=== PATIENT | female | born 1935 | race Hispanic/Latino ===

== ENCOUNTER 2017-09-20 09:55 | Emergency (ER) | payer OTHER, SELFPAY ==
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
== END 2017-09-20 11:50 | disposition home or self-care (01) ==
LOC: ERS 09:55
DX: S29.011A Strain of muscle and tendon of front wall of thorax, initial encounter (principal); S80.12XA Contusion of left lower leg, initial encounter; I10 Essential (primary) hypertension; V43.92XA Unspecified car occupant injured in collision with other type car in traffic accident, initial encounter
CPT/HCPCS: 71046

== ENCOUNTER 2019-02-09 13:32 | Outpatient (CLI) | payer OTHER | END 2019-02-09 13:33 | disposition home or self-care (01) | LOC: ULT 13:32 | PROVIDERS: ATTEND Family Medicine | DX: I42.9 Cardiomyopathy, unspecified (principal); R05 Cough; I08.3 Combined rheumatic disorders of mitral, aortic and tricuspid valves | CPT/HCPCS: 93306 ==

== ENCOUNTER 2020-01-07 17:47 | Emergency (ER) | payer OTHER ==
[~2020-01-07 17:47] MED LIST: Iopamidol-370 76% 500 ML 1 ML ONE
[2020-01-07 21:08] LABS: #Basophils 0.1 thou/uL (0.0-0.2); #Eosinphils 0.1 thou/uL (0.0-0.7); #Lymphocytes 2.5 thou/uL (1.20-3.40); #Monocytes 1.3 thou/uL (0.11-0.59); #Neutrophils 9.7 thou/uL (1.40-6.50); %Basophils 0.4 % (0.0-1.0); %Eosinophils 0.4 % (0.0-10.0); %Lymphocytes 18.5 % (21.0-51.0); %Monocytes 9.2 % (0.0-10.0); %Neutrophils 71.5 % (42.0-75.0); Hemoglobin 11.3 g/dL (12.0-16.0); Mean Corpuscular HGB CONC 32.5 g/dL (32.0-36.0); Mean Corpuscular Hemoglobin 28.1 pg (27.0-31.0); Mean Corpuscular Volume 86.3 fL (78.0-98.0); Mean Platelet Volume 6.8 fL (7.4-10.4); Platelet Count 390 thou/uL (130-400); RBC Distribution Width 13.9 % (11.5-14.5); Red Blood Cell (RBC) Count 4.03 mill/uL (4.20-5.40); White Blood Cell (WBC) Count 13.6 thou/uL (4.8-10.8)
[2020-01-07] MEDS ORDERED: Morphine 4 MG/ML VIAL ONE (21:17)
[2020-01-07 21:50] LABS: Bilirubin Negative (Negative); Blood, Urine Negative (Negative); Clarity Clear (Clear); Glucose, Urine (Dipstick) Normal (Negative); Ketone, Urine 10 mg/dL (Negative); Leukocyte Negative Leu/uL (Negative); Nitrite Negative (Negative); Protein, Urine (Dipstick) 10 mg/dL (Neg-Trace); Specific Gravity, Urine 1.014 (1.002-1.036); pH, Urine 6.5 (5.0-9.0)
[2020-01-07 21:51] LABS: ALT (SGPT) 11 U/L (8-55); AST (SGOT) 17 U/L (5-34); Albumin 3.2 g/dL (3.4-4.8); Alkaline Phosphatase 80 U/L (40-110); Anion Gap 15 mmol/L (10-20); BUN (Urea Nitrogen) 12 mg/dL (9.8-20.1); Bilirubin, Total 0.5 mg/dL (0.2-1.2); Calc. Creatinine Clearance 0 mL/min (70-130); Calcium 8.9 mg/dL (7.8-10.44); Carbon Dioxide 24 mmol/L (23-31); Chloride 99 mmol/L (98-107); Estimated GFR-MDRD 82; Globulin 2.8 g/dL (2.4-3.5); Glucose 99 mg/dL (83-110); Lipase Less than 4 U/L (8-78); Potassium 3.4 mmol/L (3.5-5.1); Sodium 135 mmol/L (136-145)
--- NOTE | 2020-01-07 22:31 | CT ---
CT ABDOMEN AND PELVIS WITH IV CONTRAST: Date: 01/07/2020 INDICATION: Right abdominal pain. No comparison. FINDINGS: Lung bases clear. Liver shows mild intra and extrahepatic biliary duct dilatation. Patient appears to be post cholecyst ectomy. Spleen and pancreas unremarkable. Stomach and duodenum unremarkable. Adrenal glands unremarkable. Both kidneys show mildly prominent renal pelvises without evidence of hy dronephrosis. No evidence of urinary calculus. Urinary bladder is mildly distended. Small bowel loops normal caliber. There is abnormal mural thickening and dilatation of the mid right colon. There is surrounding inflam mation; however, neoplasm is the diagnosis of exclusion. There is scattered stool in the colon. There is diverticulosis of the sigmoid. Prominent stool in the rectum. Aorta shows atherosclerotic change, but normal caliber. No free fluid. IMPRESSION: 1. Abnormality involving the right colon. The mid right colon shows abnormal dilatation with mural t hickening and irregular wall. Neoplasm should be excluded. Recommend colonoscopy to further evaluate. 2. Other nonacute findings as noted above. POS: [facility]
== END 2020-01-07 23:49 | disposition home or self-care (01) ==
LOC: ERS 17:47
DX: K63.89 Other specified diseases of intestine (principal); I10 Essential (primary) hypertension; Z79.899 Other long term (current) drug therapy
CPT/HCPCS: 51701; 74177; 80053; 81003; 83690; 84484; 85025; 93005; 96361; 96374; J2270; Q9967

== ENCOUNTER 2020-01-21 18:32 | Inpatient (IN) | payer OTHER ==
[2020-01-21] MEDS ORDERED: Morphine 4 MG/ML VIAL ONE (20:09)
[2020-01-21 20:22] LABS: Bilirubin Negative (Negative); Blood, Urine Negative (Negative); Glucose, Urine (Dipstick) Negative (Negative); Ketone, Urine 40 mg/dL (Negative); Leukocyte Small (Negative); Nitrite Negative (Negative); Protein, Urine (Dipstick) Negative (Neg-Trace); pH, Urine 5.5 (5.0-9.0)
[2020-01-21 20:22] LABS: ALT (SGPT) 11 U/L (8-55); AST (SGOT) 19 U/L (5-34); Albumin 2.9 g/dL (3.4-4.8); Alkaline Phosphatase 122 U/L (40-110); Anion Gap 16 mmol/L (10-20); BUN (Urea Nitrogen) 9 mg/dL (9.8-20.1); Bilirubin, Total 0.5 mg/dL (0.2-1.2); Calc. Creatinine Clearance 0 mL/min (70-130); Calcium 8.1 mg/dL (7.8-10.44); Carbon Dioxide 24 mmol/L (23-31); Chloride 96 mmol/L (98-107); Estimated GFR-MDRD 88; Globulin 2.3 g/dL (2.4-3.5); Glucose 121 mg/dL (83-110); Protein, Total 5.2 g/dL (6.0-8.3); Sodium 131 mmol/L (136-145)
[2020-01-21 20:23] LABS: Clarity Hazy (Clear)
[2020-01-21 20:29] LABS: Bacteria/HPF 3+ HPF (None Seen); RBC/HPF None Seen HPF (0-3)
[2020-01-21 21:08] LABS: #Basophils 0.1 thou/uL (0.0-0.2); #Lymphocytes 1.1 thou/uL (1.20-3.40); #Monocytes 1.1 thou/uL (0.11-0.59); #Neutrophils 14.2 thou/uL (1.40-6.50); %Basophils 0.3 % (0.0-1.0); %Eosinophils 0.2 % (0.0-10.0); %Lymphocytes 6.9 % (21.0-51.0); %Monocytes 6.6 % (0.0-10.0); Hemoglobin 11.8 g/dL (12.0-16.0); Mean Corpuscular HGB CONC 31.9 g/dL (32.0-36.0); Mean Corpuscular Hemoglobin 27.9 pg (27.0-31.0); Mean Corpuscular Volume 87.4 fL (78.0-98.0); Mean Platelet Volume 6.6 fL (7.4-10.4); Platelet Count 392 thou/uL (130-400); Red Blood Cell (RBC) Count 4.22 mill/uL (4.20-5.40); White Blood Cell (WBC) Count 16.5 thou/uL (4.8-10.8)
--- NOTE | 2020-01-21 21:10 | RAD ---
Exam: Chest one view HISTORY:Trauma. Unwitnessed fall at home. Comparison: 09/20/2017 FINDINGS: Cardiac silhouette: Normal Aorta: Atherosclerosis Pulmonary vessels: Normal Costophrenic angles: Left-sided pleural effusion LUNGS: Hyperinflation. Parenchymal changes left lung base. Pneumothorax: None Osseous abnormalities: No acute osseous abnormalities IMPRESSION: 1. Pleural and parenchymal changes in the left lung base 2. Atherosclerosis.
--- NOTE | 2020-01-21 21:11 | RAD ---
Exam:Right wrist 3 views HISTORY: Fall. Pain. COMPARISON: None FINDINGS: Diffuse bone demineralization. Intercarpal joint spaces are preserved. Nondisplaced fracture of the base of the first metacarpal is suspected. Correlate for point tendernes s. Distal radius fracture with dorsal angulation. Ulnar styloid injury is also noted. There is associated soft tissue swelling and deformity. IMPRESSION: 1. Ulnar styloid fracture 2. Distal radius fracture with dorsal angulation. There is associated deformity and soft tissue swell ing. 3. Probable nondisplaced fracture of the base of the first metacarpal. Correlate for point tenderness .
--- NOTE | 2020-01-21 21:12 | RAD ---
Exam: One view pelvis HISTORY: Fall. Trauma. Pain FINDINGS: Limited evaluation of the sacrum due to overlying bowel gas Intact bony pelvis Intact obturator rings Symmetric hip joint spaces Contour of both femoral heads are maintained. No hip fracture IMPRESSION: No fracture.
--- NOTE | 2020-01-21 21:31 | CT ---
Exam: Head CT without contrast HISTORY: Status post fall. No loss of consciousness. COMPARISON: none FINDINGS: Hemorrhage: No intraparenchymal hemorrhage or extra-axial hematoma. Brain parenchyma: Cortical kauffman-white matter differentiation is preserved. No mass effect or midline shift. Basilar cisterns are patent.Minimal periventricular white matter hypodensities due to chronic small vessel ischemic change Ventricular system: Ventricles and sulci are patent and symmetric. Calvarium: Intact. Sinuses and mastoid air cells: Small air-fluid level in the right maxillary sinus is presumed to be d ue to sinus disease. Scalp/soft tissues: Small focus of air attenuation involving the right frontal scalp likely represent ing posttraumatic laceration. There is mild posttraumatic edema involving the right periorbital, presenting traumatic and premaxillary soft tissues. IMPRESSION: 1. No intracranial post traumatic sequelae 2. Post traumatic changes involving the right periorbital soft tissues, right facial soft tissues and right scalp. 3. Small air-fluid level of the right maxillary sinus which is presumed to be due to sinus disease. I n the appropriate clinical setting, posttraumatic change with a small focus of hemorrhage in the right maxillary sinus cannot be excluded. Clinical correlation and additional imaging if clinically w arranted.
--- NOTE | 2020-01-21 21:35 | CT ---
Exam: CT cervical spine without contrast HISTORY: Trauma. Pain. COMPARISON: None FINDINGS: No craniocervical dissociation. Appropriate alignment of the lateral masses of C1 and C2. Intact odon toid process There is grade 1 anterolisthesis of C2 upon C3, grade 1 retrolisthesis C4 upon C5, grade 1 anterolist hesis of C5 upon and grade 1 anterolisthesis of C7 upon T1. Facet arthropathy favors chronic changes rather than ligamentous injury. Soft tissue neck structures: No mass, lymphadenopathy or hematoma. No prevertebral soft tissue swelli ng. Upper mediastinum and lung apices: Unremarkable Central spinal canal: Moderate central canal stenosis at C4-C5 due to broad-based osteophyte ridge. T here are varying degrees of neural foraminal stenosis due to degenerative change. Technique limits evaluation Vertebral bodies: Cervical spine vertebral body height is maintained. No fracture. IMPRESSION: 1. No cervical spine fracture. 2. Spondylolisthesis likely due to facet arthropathy. Current study does not assess for ligamentous i njury. If there is concern for ligamentous injury, MRI can be performed.
[2020-01-21] MEDS ORDERED: Bupivacaine 0.5% 10 ML VIAL ONE (22:24)
--- NOTE | 2020-01-21 23:19 | RAD ---
Exam:Right wrist 3 views HISTORY: Distal radius fracture. Status post reduction COMPARISON: None FINDINGS: Overlying fiberglass is been placed. Limited evaluation for fine bony detail. Stable distal radius fracture with persistent dorsal angulation. Stable soft tissue swelling and defo rmity. Fracture involving the proximal aspect of the first metatarsal is also redemonstrated. Ulnar styloid fracture is also redemonstrated IMPRESSION: Post reduction findings as above. Results study discussed with Dr. Kearns 01/21/2020 at 11:16 PM code CR
[2020-01-21] MEDS ORDERED: Ondansetron ODT 4 MG TAB PO PRN (23:43)
[2020-01-21] MEDS ORDERED: Dextrose 5% in Water 1,000 ML IV PRN (23:43)
[2020-01-21] MEDS ORDERED: hydrALAZINE 20 MG/ML VIAL SLOW IVP PRN (23:43)
[2020-01-21] MEDS ORDERED: Morphine 4 MG/ML VIAL SLOW IVP PRN (23:43)
[2020-01-21] MEDS ORDERED: Dextrose 50% Abboject 50 ML SYRINGE SLOW IVP PRN (23:43)
[2020-01-21] MEDS ORDERED: traMADol HCl 50 MG TAB PO PRN (23:46)
--- NOTE | 2020-01-22 00:05 | PDOC.H&P ---
- History & Physical HISTORY OF PRESENT ILLNESS: Ms Vides is a 85-year-old female, who presented to the [facility] an episod of syncope and fall at home. Daughter reported that she saw her mother " pass out " and fell face down , hit her forehead, broke her glass . Daughter also stated that her mother has lost 20lb in a few weeks now, and her BP typical low , in [facility] primary Dr advise that she hold on to HTN medication Patient did not remember the event. After the fall, she felt pain from R wrist Upon arrival in the ED, patient alert and wake, GCS 15. Pain from R wrist, vital stable Tomorrow will be her first appointment with general surgoen discussing on her colon cancer treatment. REVIEW OF SYSTEMS: Noncontributory except per HPI. PAST MEDICAL HISTORY: hypertension, colon cancer await for treatment PAST SURGICAL HISTORY: Bilateral knee replacement SOCIAL HISTORY: denied smoking history . Drinks socially. Denies drug use. ALLERGIES: sulfa, penicillin CURRENT MEDICATIONS: unrecalled PHYSICAL EXAMINATION: GENERAL: Currently, the patient is lying in bed, alert and awake. GCS 15. severe obesity VITAL SIGNS: Blood pressure 120/80, heart rate 85, respiratory rate 19, O2 saturation 99 on room air HEENT: No deformity. No tender to palpation. some bruising around R eye NECK: Trachea midline. CHEST: no tender to palpation bilaterally. atraumatic LUNGS: clear bilaterally HEART regular rate and rhyme ABDOMEN: soft non distended bowel sound active PELVIS: Stable. EXTREMITIES: R wrsit is on splint. Neurovascular intact x4 NEUROLOGIC: GCS 15. LABORATORY DATA: Initial workup shows white count 16.5 hemoglobin 11.8, sodium 131, potassium 5, creatinine 0.64 UA: UTI X-ray of the R wrist: : distal radius fracture, ulna styloid fracture CT of Chest, abdomen, and pelvis , brain and cervical spine: no acute abnormality ASSESSMENT: 1. Status post ground level fall , syncope 2. R wrist fracture 3. UTI on admission 4. History of colon cancer PLAN: The patient will be admitted to [facility] [address] Jordan will take patient to the OR for R wrist fracture fixation tomorrow. Initiate antibiotic for UTI Initiate nonpharmacological DVT prophylaxis, gastritis prophylaxis.
[2020-01-22] MEDS ORDERED: Ciprofloxacin 500 MG TAB PO SCH (01:00)
[2020-01-22] MEDS: traMADol HCl 50 MG TAB PO SCH ×4 (03:18→17:00)
[2020-01-22] MEDS: Acetaminophen 325 MG TAB PO SCH ×4 (03:18→17:00)
[2020-01-22] MEDS: Morphine 2 MG/ML VIAL SLOW IVP PRN ×2 (03:35→09:20)
[2020-01-22] MEDS: Sodium Chloride 0.9% 1,000 ML IV SCH ×3 (03:36→16:51)
[2020-01-22 05:10] LABS: #Lymphocytes 1.5 thou/uL (1.20-3.40); #Monocytes 1.2 thou/uL (0.11-0.59); #Neutrophils 10.4 thou/uL (1.40-6.50); %Basophils 0.2 % (0.0-1.0); %Eosinophils 0.1 % (0.0-10.0); %Lymphocytes 11.8 % (21.0-51.0); %Monocytes 8.8 % (0.0-10.0); %Neutrophils 79.1 % (42.0-75.0); Hemoglobin 10.2 g/dL (12.0-16.0); Mean Corpuscular HGB CONC 30.9 g/dL (32.0-36.0); Mean Corpuscular Hemoglobin 26.6 pg (27.0-31.0); Mean Platelet Volume 6.8 fL (7.4-10.4); Platelet Count 377 thou/uL (130-400); RBC Distribution Width 13.9 % (11.5-14.5); Red Blood Cell (RBC) Count 3.82 mill/uL (4.20-5.40); White Blood Cell (WBC) Count 13.1 thou/uL (4.8-10.8)
[2020-01-22 05:26] LABS: Anion Gap 16 mmol/L (10-20); BUN (Urea Nitrogen) 8 mg/dL (9.8-20.1); Calc. Creatinine Clearance 50 mL/min (70-130); Calcium 8.1 mg/dL (7.8-10.44); Carbon Dioxide 23 mmol/L (23-31); Chloride 98 mmol/L (98-107); Estimated GFR-MDRD Greater than 90; Glucose 107 mg/dL (83-110); Potassium 3.8 mmol/L (3.5-5.1); Sodium 133 mmol/L (136-145)
[2020-01-22] MEDS ORDERED: CEFAZOLIN 2 GM in Premix Bag 1 BAG IVPB SCH (07:30)
--- NOTE | 2020-01-22 08:00 | ULT ---
BILATERAL CAROTID DUPLEX ULTRASOUND: HISTORY: Syncope, confusion TECHNIQUE: Grayscale, color-flow and spectral Doppler ultrasound imaging of the extracranial carotid artery syst ems was performed bilaterally. FINDINGS: There is minimal plaque formation on either side The peak systolic velocity in the right ICA measures 68 cm/s with an end-diastolic velocity of 17 cm/ s and a systolic ratio of 0.80. The peak systolic velocity in the left ICA measures 68 cm/s with an end-diastolic velocity of 15 cm/s and a systolic ratio of 0.79. Flow in both vertebral arteries remains antegrade. IMPRESSION: No evidence of hemodynamically significant stenosis in either ICA
[2020-01-22] MEDS: Famotidine 20 MG TAB PO SCH ×2 (09:20→21:27)
--- NOTE | 2020-01-22 09:20 | CON ---
DATE OF CONSULTATION: This is Kali Raymond PA-C dictating a report for Pierre Alicia MD. HISTORY OF PRESENT ILLNESS: We were asked by Trauma in the ER to see patient. Daughter was in the room, interpreting. Daughter states that mom got up, was holding onto a closet, closet moved, she fell, she hit her head on the right side and sustained a right broken wrist. Daughter states she did not really lose consciousness. Her eyes were open, but it sounds like she was quite stunned as her mom did not answer or do anything for a short period of time. In speaking with daughter, her mom was normal this morning. Her only complaint is a right-sided head pain and right wrist pain. Denies any numbness and tingling in the fingers, but they hurt to move. The patient also has some right lower abdominal edema, swelling, which daughter states is from her tumor growing and it is painful. PAST MEDICAL HISTORY: Hypertension, colon cancer, which patient does not want any treatments per family. PAST SURGICAL HISTORY: Bilateral knee. ALLERGIES: SULFA, PENICILLIN. CURRENT MEDICATIONS: Daughter will bring a list today, but not on any blood thinners. SOCIAL HISTORY: Lives with family. No nicotine, alcohol, or drug use whatsoever. FAMILY HISTORY: For this event, is noncontributory. REVIEW OF SYSTEMS: Wrist and right-sided head pain and some right abdominal pain. Otherwise, rest of review of systems negative. PHYSICAL EXAMINATION: VITAL SIGNS: Respirations 16. GENERAL: Well-nourished, well-developed very pleasant female. Speech clear. Affect pleasant. Answers questions appropriately. Oriented per daughter, who is interpreting. No acute distress. HEENT: Scalp/face, right-sided scalp, face bruising with some tenderness. Otherwise, face is symmetric. Smile is equal. Tongue midline. NECK: Supple. Trachea midline. ABDOMEN: Right lower quadrant, the patient does have some swelling and pain. EXTREMITIES: Upper extremities equal size, shape, symmetry. Normal bulk and tone with the exception of her right wrist and fingers, which are swollen. She is able to move the fingers well, but it does cause increased wrist pain. Fingers are a little bit swollen, but no sensory deficits. No pain in the hips with internal-external rotation of legs and moving legs well. PELVIS: Rocked, no pain with doing so. ASSESSMENT: 1. Fall. 2. Multiple health issues. 3. Right wrist fracture. PLAN: Again, I spoke with daughter, who explained to her mom we need to do a closed reduction and pinning. I explained that if this does not hold, we may need to open the wrist and do some plate and screws. We went over both procedures. She explained it to her mom and went over the risks and benefits of the surgery, which they understand and Trauma is following for medical management. The patient and daughter are amenable to go forth with surgery. Daughter is going to run home, get the power of claim attorney, get cleaned up and then come on back in and then at that point, I will introduce her to Dr. Alicia. We will get her consented. Antibiotics are ordered. She is first case down in the OR. Job ID: [id number]
[2020-01-22] MEDS: Gabapentin 100 MG CAP PO SCH ×2 (09:21→21:26)
[2020-01-22] MEDS: Polyethylene Glycol 3350 17 GM Packet PO SCH (09:21)
[2020-01-22] MEDS: Senokot S 8.6-50 MG TAB PO SCH ×2 (09:21→21:27)
[2020-01-22] MEDS ORDERED: Lidocaine 1% PF 5 ML VIAL ONE (10:29)
[2020-01-22] MEDS ORDERED: Ondansetron PF 4 MG/2 ML Vial ONE (10:29)
[2020-01-22] MEDS ORDERED: PROPOFOL 200 MG/20 ML VIAL ONE (10:29)
[2020-01-22] MEDS ORDERED: Dexamethasone 20 MG/5 ML VIAL ONE (10:29)
[2020-01-22] MEDS ORDERED: Fentanyl 100 MCG/2 ML VIAL ONE (12:11)
[2020-01-22 12:28] LABS: SARS-CoV-2 MS2 Positive; SARS-CoV-2 N Gene Negative; SARS-CoV-2 S Gene Negative; SARS-CoV-2 by NAA Not Detected (NotDetected); SARS-CoV-2 orf1ab Negative
[2020-01-22] MEDS ORDERED: Ondansetron HCl/PF 4 MG/2 ML Vial IVP PRN (14:10)
--- NOTE | 2020-01-22 14:44 | RAD ---
Radiograph right wrist 2 views: 01/22/2020 HISTORY: 85-year-old female with acute, traumatic, wrist fracture COMPARISON: Postreduction images of 01/21/2020 FINDINGS: Splint has been removed. Fluoroscopic spot images obtained with C-arm. Distal radial metaphyseal frac ture has been reduced, and fixated with 2 K wires. Ulnar styloid fracture remains displaced. IMPRESSION: Status post very recent closed reduction and pin fixation of acute, traumatic, displaced distal radia l metaphyseal fracture.
--- NOTE | 2020-01-22 17:24 | PRG ---
DATE OF SERVICE: 01/22/2020 SUBJECTIVE: Ms. Vides is an 85-year-old woman, Chinese-speaking only, who is post injury day #1 status post fall following a near-syncopal episode. She suffered a right wrist fracture. This morning, through a hotel services sales representative, she reports adequate pain control. The patient recalls feeling faint prior to the fall. She denies any chest pain, dyspnea, or any other fall episodes in the past. OBJECTIVE: VITAL SIGNS: This morning include blood pressure 132/63, pulse 92, respiratory rate is 14, temperature 98.7 degrees Fahrenheit, oxygen saturation 93% on room air. HEART: Reveals irregular rate and rhythm. LUNGS: Clear to auscultation bilaterally. Breathing, regular and nonlabored. ABDOMEN: Soft, nontender, and nondistended. EXTREMITIES: Reveals 2+ left radial and bilateral pedal pulses present. Right upper extremity is immobilized in a long splint. She has good capillary refill. NEUROLOGIC: Reveals no focal deficits present. LABORATORY FINDINGS: Today include a CBC with 13,100 white blood cells, hemoglobin and hematocrit are 10.2 and 32.9 respectively. Platelet count 377,000. Metabolic profile; sodium 133, potassium 3.8, chloride is 98, bicarb is 23, BUN is 8, creatinine 0.60, glucose 107. IMPRESSION: 1. Post injury day #1 status post ground level fall. 2. Closed right wrist fracture. 3. Near syncopal episode, likely secondary to orthostatic hypotension. PLAN: 1. Initiate physical and occupational therapy following surgery. 2. We will obtain a transthoracic echocardiography to evaluate cardiac chambers, function, and wall motion. 3. Note that the bilateral carotid ultrasound revealed no critical stenosis. 4. Above findings and plan discussed with the patient, who indicates understanding of information given. 5. I have answered her questions. Job ID: [id number]
[2020-01-22] MEDS ORDERED: Prevnar 13-Val Conj/PF 0.5 ML SYRINGE IM ONE (21:00)
--- NOTE | 2020-01-22 23:56 | OP ---
DATE OF PROCEDURE: 01/22/2020 PREOPERATIVE DIAGNOSES: 1. Right distal radius fracture (Colles fracture). 2. Right thumb metacarpal base fracture, nondisplaced. POSTOPERATIVE DIAGNOSES: 1. Right distal radius fracture (Colles fracture). 2. Right thumb metacarpal base fracture, nondisplaced. PROCEDURES PERFORMED: 1. Closed reduction and pinning of right distal radius fracture. 2. Closed treatment of right thumb metacarpal fracture. ANESTHESIA: General. COMPUTER VIDEO GAME DESIGNER: Kali Raymond PA-C TOURNIQUET TIME: Zero. ESTIMATED BLOOD LOSS: Zero. IMPLANTS: 0.062 K-wires x2. COMPLICATIONS: None. DRAINS: None. SPECIMEN: None. OUTCOME: Satisfactory. INDICATIONS FOR PROCEDURE: The patient is an 85-year-old lady, status post syncopal episode, sustaining a right distal radius fracture as well as nondisplaced right thumb metacarpal base fracture. After discussion with the patient and her daughter including risks and benefits, we decided to proceed with a closed reduction and percutaneous pin stabilization for the displaced right distal radius and proceed with nonsurgical management for the right thumb metacarpal fracture. Informed consent has been obtained. I believe all questions answered. DESCRIPTION OF PROCEDURE: The patient was brought to the operating room, and a time-out performed followed by induction of general anesthesia. Next, a sterile prep and drape were performed of the right upper extremity. A closed reduction maneuver was performed of the right wrist with evangelical of radial inclination, volar tilt, and radial length. Given this evangelical of alignment, it was opted to proceed with K-wire stabilization. A first K-wire was passed from the tip of the radial styloid obliquely across the fracture into the proximal radial metaphyseal cortex. A second pin was passed through the fourth extensor compartment obliquely across the fracture. This resulted in relatively good stabilization of the fracture with good alignment. The thumb metacarpal base was found to be completely nondisplaced and as such, not felt to be in need of surgical stabilization. The two K-wires were bent at right angles and dressed with Xeroform and gauze. A fiberglass splint was then applied to the forearm. The patient was then transferred to recovery room in stable condition. There were no complications. She tolerated the procedure well. Job ID: [id number]
[2020-01-23] MEDS: traMADol HCl 50 MG TAB PO SCH ×4 (00:19→18:26)
[2020-01-23] MEDS: Acetaminophen 325 MG TAB PO SCH ×4 (00:19→18:26)
[2020-01-23] MEDS: Sodium Chloride 0.9% 1,000 ML IV SCH ×3 (00:20→18:16)
[2020-01-23] MEDS ORDERED: Prevnar 13-Val Conj/PF 0.5 ML SYRINGE IM ONE (09:00)
[2020-01-23] MEDS: Polyethylene Glycol 3350 17 GM Packet PO SCH ×2 (09:09→09:16)
[2020-01-23] MEDS: Senokot S 8.6-50 MG TAB PO SCH (09:09)
[2020-01-23] MEDS: Gabapentin 100 MG CAP PO SCH (09:09)
[2020-01-23] MEDS: Famotidine 20 MG TAB PO SCH (09:09)
[2020-01-23] MEDS ORDERED: Enoxaparin Sodium 30 MG/0.3 ML SYRINGE SC SCH (09:30)
[2020-01-23 20:49] VITALS: BP 131/62; TEMP 98.8
[2020-01-24] MEDS ORDERED: Enoxaparin Sodium 30 MG/0.3 ML SYRINGE SC SCH (09:00)
== END 2020-01-23 20:37 | disposition home or self-care (01) | DRG 511 ==
LOC: ERS 18:32 → 2NO 23:28
PROVIDERS: ADMIT Specialist; ATTEND Specialist
PROC: 0PSH34Z Reposition Right Radius with Internal Fixation Device, Percutaneous Approach (ICD-10-PCS; principal; 2020-01-22)
PROC: 3E0234Z Introduction of Serum, Toxoid and Vaccine into Muscle, Percutaneous Approach (ICD-10-PCS; 2020-01-23)
DX: S52.531A Colles' fracture of right radius, initial encounter for closed fracture (principal); N39.0 Urinary tract infection, site not specified; C18.9 Malignant neoplasm of colon, unspecified; Z11.59 Encounter for screening for other viral diseases; S52.611A Displaced fracture of right ulna styloid process, initial encounter for closed fracture; I10 Essential (primary) hypertension; Z96.653 Presence of artificial knee joint, bilateral; I95.1 Orthostatic hypotension; W01.110A Fall on same level from slipping, tripping and stumbling with subsequent striking against sharp glass, initial encounter; S62.234A Other nondisplaced fracture of base of first metacarpal bone, right hand, initial encounter for closed fracture; Y92.009 Unspecified place in unspecified non-institutional (private) residence as the place of occurrence of the external cause; Z90.49 Acquired absence of other specified parts of digestive tract; Z79.899 Other long term (current) drug therapy; Z88.0 Allergy status to penicillin; Z88.2 Allergy status to sulfonamides; Z23 Encounter for immunization
CPT/HCPCS: 25605; 36415; 36416; 51701; 70450; 71045; 72125; 72170; 76000; 80048; 80053; 81003; 81015; 84484; 85025; 87635; 90471; 90670; 93005; 93306; 93880; 96374; G0009; J0690; J1100; J1650; J2270; J2405; J2704; J3010; J3490; P9045; Q0162; U0003